=== PATIENT | female | born 1955 | race Caucasian/White ===

== ENCOUNTER → 2018-06-21 16:48 | Outpatient (CLI) | payer OTHER | END | disposition home or self-care (01) | LOC: D.MAMMO 15:15 | DX: Z12.31 Encounter for screening mammogram for malignant neoplasm of breast (principal) ==

== ENCOUNTER → 2018-07-06 13:02 | Outpatient (CLI) | payer OTHER | END | disposition home or self-care (01) | LOC: D.US 13:02 | DX: N63.13 Unspecified lump in the right breast, lower outer quadrant (principal) ==

== ENCOUNTER → 2018-07-11 12:33 | Outpatient (CLI) | payer OTHER | END | disposition home or self-care (01) | LOC: D.US 12:33 | DX: N63.13 Unspecified lump in the right breast, lower outer quadrant (principal) ==

== ENCOUNTER 2018-08-26 06:29 | Day surgery (SDC) | payer OTHER ==
[2018-08-25 14:46] LABS: HEMATOCRIT 44.2 % (36.0-48.0); HEMOGLOBIN 14.7 g/dL (12-16); MCH 29.9 pg (26.0-34.0); MCHC 33.3 g/dL (31.0-37.0); MCV 89.8 fL (80.0-100.0); RBC 4.92 10x6/uL (4.00-5.40); RDW 13.7 % (11.5-14.5); WBC 7.3 10x3/uL (4.8-10.8)
[~2018-08-26] VITALS: Ht 167.6 cm; Wt 110.2 kg
[2018-08-26 06:28] VITALS: BP 146/79; Ht 167.6 cm; Wt 110.2 kg
[~2018-08-26 06:29] MED LIST: ALEVE220 MG PO
[2018-08-26] MEDS ORDERED: HYDROCODON-ACE1 EA10 PO (10:55)
--- NOTE | 2018-08-26 12:25 | NUR ---
ASSUMED CARE OF PATIENT. PT RELATES HER DAUGHTER HAD GONE DOWN STAIRS TO GET SOMETHING TO EAT. FL TRAY SETTING ON BEDSIDE TABLE. DRESSING CDI TO RIGHT AXILLARY AREA WITH BRUISING NOTED TO BREAST.
--- NOTE | 2018-08-26 13:15 | NUR ---
TOLERATED DIET. NO CHANGES IN SURGICAL SITE.
--- NOTE | 2018-08-26 13:35 | NUR ---
IV DC'D WITH CATHETER INTACT. WRITTEN AND VERBAL DC INST. GIVEN TO PT ALONG WITH RX. VERBALIZED UNDERSTANDING.
--- NOTE | 2018-08-26 13:58 | NUR ---
DC'D HOME WITH FAMILY VIA PRIVATE VEHICLE. TAKEN TO VEHICLE VIA WC. STABLE AT TIME OF DC.
--- NOTE | 2018-08-30 08:16 | OP ---
PATIENT NAME: SHANIQUE STACY MEDICAL RECORD: [id number] :57 LOCATION:[facility] ADMISSION DATE: SURGEON: HARJINDER VALLE MD DATE OF OPERATION: 08/26/2018 PREOPERATIVE DIAGNOSIS: Right breast myofibroblastoma. POSTOPERATIVE DIAGNOSIS: Right breast myofibroblastoma. PROCEDURE: Needle local right breast lumpectomy. SURGEON: Harjinder Valle MD REPORT OF PROCEDURE: The patient's right breast was prepped and draped in sterile fashion. Preoperatively, the patient did undergo a sterotactic placement of a needle localization. A transverse incision was made in the inframammary fold. Electrocautery was used to dissect through the subcutaneous tissues up to the wire. The wire was cut and brought through the wound. We then took out a large core of tissue from the breast, incorporating this wire. The wire was encountered a few times. We made sure to get a good ring of tissue that appeared normal grossly. Once the specimen was completely excised, then it was marked appropriately and sent off to mammography that showed that the wire was completely intact. We then irrigated out the wound with sterile water and reapproximated the subcutaneous tissues with interrupted 3-0 Vicryl. We infused 10 mL of 0.25% Marcaine with epinephrine into the surrounding tissues and closed the skin with running subcutaneous 5-0 Monocryl. COMPLICATIONS: None. CONDITION: Stable. ANESTHESIA: General endotracheal and local. BLOOD LOSS: Minimal. TRANSINT:[id number] Voice Confirmation ID: [id number] DOCUMENT ID: [id number] HARJINDER VALLE MD at 0816 CC: CATHY TILLMAN MD [id number] DICTATION DATE: 08/26/18 1059 [employer] CONSULTANT: 08/26/[address] [facility] 08/26/18 [place] [id number]
== END 2018-08-26 13:50 | disposition home or self-care (01) ==
LOC: D.OPS 06:29 → D.MAMMO 08:00 → D.OPS 13:50
PROVIDERS: Anesthesiology; ATTEND Surgery
DX: D24.2 Benign neoplasm of left breast (principal); Z01.812 Encounter for preprocedural laboratory examination

== ENCOUNTER 2020-03-18 10:15 | Outpatient (CLI) | payer OTHER ==
[2018-08-26 06:28] VITALS: BMI 39.3
[~2020-03-18 10:15] MED LIST changes: +HYDROCODON-ACE1 EA10 PO
== END 2020-03-18 13:00 | disposition home or self-care (01) ==
LOC: D.MAMMO 10:15
PROVIDERS: ATTEND Nurse Practitioner
DX: Z12.31 Encounter for screening mammogram for malignant neoplasm of breast (principal)